=== PATIENT | female | born 1975 | race Caucasian/White ===

== ENCOUNTER 2017-10-20 17:25 | Emergency (ER) | payer SELFPAY ==
[2017-10-20 17:59] VITALS: BP 155/91; PULSE 88; TEMP 98.2; BMI 37.5
--- NOTE | 2017-10-20 18:41 | PDOC ---
History of Present Illness - General Chief Complaint: Wound Stated Complaint: CYST Time Seen by Provider: 10/20/17 18:22 - History of Present Illness Initial Comments: 10/20/17 18:36 CHIEF COMPLAINT: breast discharge HISTORY OF PRESENT ILLNESS: 42 yo F with hx of multiple benign breast masses presents to fast track with discharge from nipple since this morning. Patient has been followed by PCP MD Castañeda and was supposed to have a f/u appointment after a mammogram and breast ultrasound in August, but her appointment was pushed to January. Patient reports pain to left breast at site of mass. Patient denies any nausea, vomiting, or diarrhea, but does report subjective fever this afternoon. She reports taking ibuprofen with relief of fever. No recent travel or sick contacts. PAST MEDICAL HISTORY: Denies past medical history FAMILY HISTORY: Denies SOCIAL HISTORY: Denies tobacco, alcohol, illicit drug use. SURGICAL HISTORY: Denies ALLERGIES: No known drug allergies REVIEW OF SYSTEMS General/Constitutional: Subjective fever today. Denies weakness, weight change. HEENT: Denies change in vision. Denies ear pain or discharge. Denies sore throat. Cardiovascular: Denies chest pain or shortness of breath. Respiratory: Denies cough, wheezing, or hemoptysis. Gastrointestinal: Denies nausea, vomiting, diarrhea. Denies rectal bleeding. Genitourinary: Denies dysuria, frequency, or change in urination. Musculoskeletal: Denies joint or muscle swelling or pain. Denies neck or back pain. Skin and breasts: Clear liquid discharge from breasts this morning, none at this time. Pain to left breast "when I push on it." Neurologic: Denies headache, vertigo, loss of consciousness, or loss of sensation. PHYSICAL EXAM General Appearance: Well-appearing, appropriately dressed. No apparent distress. HEENT: EOMI, PERRLA. No conjunctival pallor. No photophobia, scleral icterus. Respiratory/Chest: Lungs CTAB. Cardiovascular: RRR. S1, S2. Gastrointestinal/Abdominal: Normal bowel sounds. Abdomen soft, non-distended. No tenderness or rebound tenderness. No organomegaly, pulsatile mass, guarding , hernia, hepatomegaly, splenomegaly. Musculoskeletal/Extremities: Normal inspection. FROM of all extremities, normal capillary refill. Pelvis Stable. No CVA tenderness. No tenderness to extremities, pedal edema, swelling, erythema or deformity. Integumentary: Liquid stain to t-shirt over left breast. Tenderness to left breast just medial to nipple on palpation. No dimpling, peau d'orange, erythema , swelling, ecchymosis, discharge on exam. Appropriate color, dry, warm. No cyanosis, erythema, jaundice or rash Neurologic: programmer analyst consultant II-XII intact. Fully oriented, alert. Appropriate mood/affect. Motor strength 5/5. No appreciable EOM palsy, facial droop or sensory deficit. Past History - Past Medical History Allergies/Adverse Reactions: Allergies Allergy/AdvReac Type Severity Reaction Status Date / Time No Known Allergies Allergy Verified 10/20/17 17:55 Home Medications: Ambulatory Orders Epinephrine (Epi-Pen 0.3MG) [Epipen 0.3MG -] 0.3 mg IM ASDIR #2 pens 10/10/12 No Home Medications 0 dose .ROUTE UTDICT 10/10/12 Anemia: No Asthma: No Cancer: No Cardiac Disorders: No CVA: No COPD: No CHF: No Dementia: No Diabetes: No GI Disorders: No Disorders: No HTN: No Hypercholesterolemia: No Liver Disease: No Seizures: No Thyroid Disease: No - Surgical History Abdominal Surgery: No Appendectomy: No Cardiac Surgery: No Cholecystectomy: No Lung Surgery: No Neurologic Surgery: No Orthopedic Surgery: No - Suicide/Smoking/Psychosocial Hx Smoking Status: No Smoking History: Never smoked Have you smoked in the past 12 months: No Number of Cigarettes Smoked Daily: 0 *Physical Exam - Vital Signs Last Vital Signs Temp Pulse Resp BP Pulse Ox 98.2 F 88 18 155/91 99 10/20/17 17:55 10/20/17 17:55 10/20/17 17:55 10/20/17 17:55 10/20/17 17:55 Medical Decision Making - Medical Decision Making 10/20/17 18:44 42 yo F with hx of multiple benign breast masses presents to fast track with discharge from nipple since this morning. Discussed with patient that her most recent ultrasound (09/13/17) results were "most likely benign" but she needs to f/u with oncology THIS WEEK for further evaluation. Advised patient to call PCP's office to move up f/u appointment and be seen sooner than January. Advised patient of signs and symptoms for return to ER; patient verbalized understanding and agrees to plan. *DC/Admit/Observation/Transfer Diagnosis at time of Disposition: Breast discharge - Discharge Dispostion Disposition: HOME Condition at time of disposition: Stable Admit: No - Referrals Referrals: Freeman Calvillo [Staff Physician] - - Patient Instructions Printed Discharge Instructions: Fibrocystic Breast Changes: Lumps That Are Normal, DI for Breast Mass -- Uncertain Cause Additional Instructions: As discussed, you MUST follow up with Dr. Calvillo THIS WEEK for further evaluation of your breast discharge. If you develop any fever uncontrolled by Tylenol or motrin, vomiting, diarrhea, sudden weight loss, or any new or worsening symptoms, please return to the ER immediately. [place] se discuti, DEBE continuar con Dr. Calvillo ESTA SEMANA para lily mayor evaluacin de sellers seno. Si desarrolla fiebre no controlada por Tylenol o motrin, vmitos, diarrea, prdida repentina de peso o cualquier sntoma nuevo o que empeora, regrese a la shauna de emergencias inmediatamente. Print Language: [place] CITIZEN - Post Discharge Activity
== END 2017-10-20 19:22 | disposition home or self-care (01) ==
LOC: JERFT 17:25
DX: N60.12 Diffuse cystic mastopathy of left breast (principal); N64.52 Nipple discharge
CPT/HCPCS: 99281-25